=== PATIENT | female | born 1930 | race African-American/Black ===

== ENCOUNTER 2018-03-04 06:23 | Day surgery (SDC) | payer MEDICARE, MEDICAID ==
--- NOTE | 2018-03-02 16:13 | Pre-Procedure Note/Attestation ---
Pre-Procedure Note/Attestation Complete Prior to Procedure Planned Procedure: right Procedure Narrative: phaco with IOL Indications for Procedure Pre-Operative Diagnosis: cataract Attestation I attest that I discussed the nature of the procedure; its benefits; risks and complications; and alternatives (and the risks and benefits of such alternatives ), prior to the procedure, with the patient (or the patient's legal traffic representative). I attest that, if there was a reasonable possibility of needing a blood transfusion, the patient (or the patient's legal traffic representative) was given the [facility] standardized written summary, pursuant to the [place] Blood Safety Act ([place] Health and Safety Code # 1645, as amended). I attest that I re-evaluated the patient just prior to the surgery and that there has been no change in the patient's H&P, except as documented below: TAYLOR MONZON Mar 02, 2018 16:13
--- NOTE | 2018-03-02 16:15 | Opthalmology H&P ---
Ophthalmology H&P H&P Chief Complaint: decreased vision in right eye HPI Vision Affects Ability to: read, focus/use eyes together, manage personal affairs HPI Narrative blurry vision Exam Visual Acuity: OD: CF OS: 20/80 Tension: OD: 16 OS: 16 Eye Exam: normal OU: external exam, palpebral fissure-width, marginal reflex distance, levator function, corneas, anterior chambers; findings: lens - OD: ns OS: ns, fundus exam - poor view OU Assessment/Plan Diagnosis: (1) Mature cataract Treatment Plan: cataract extraction w/ lens implant Goals of Treatment: improvement of vision, enhance quality of life Attestation Attestation The risks and benefits of the surgery as well as alternative procedures were explained to the patient in detail. TAYLOR MONZON Mar 02, 2018 16:15
[~2018-03-04] VITALS: Ht 165.1 cm; Wt 88.9 kg
[~2018-03-04 06:23] MED LIST: AMIODARONE HCL200 MG ORAL; CELEBREX100 MG ORAL; METHOCARBAMOL500 MG ORAL; OMEPRAZOLE20 M2 ORAL; SYNTHROID100 MCG ORAL; XARELTO10 MG ORAL; vit D PO
[2018-03-04] MEDS ORDERED: Proparacaine 0.5% Opth Soln 15ml RIGHT EYE ONE (07:00)
[2018-03-04] MEDS ORDERED: Pred Forte 1% Opth Susp 1ml ONE ×2 (07:00→08:00)
[2018-03-04] MEDS ORDERED: Dexamethasone 4mg/ml vial ONE ×2 (07:00→08:00)
[2018-03-04] MEDS ORDERED: Akten 3.5% 1ml Btl RIGHT EYE ONE (07:00)
[2018-03-04] MEDS ORDERED: Diclofenac Sod 0.1% Op Soln RIGHT EYE SCH (07:00)
[2018-03-04] MEDS ORDERED: Tetracaine 0.5% Opth 4ml Soln RIGHT EYE ONE (07:00)
[2018-03-04] MEDS ORDERED: Maxitrol Opth Oint 3.5gm ONE ×2 (07:00→08:00)
[2018-03-04] MEDS ORDERED: Pilocarpine 2% Opth 15ml Soln ONE ×2 (07:00→08:00)
[2018-03-04] MEDS ORDERED: EPINEPHrine 1mg/1ml Amp ONE ×2 (07:08→10:29)
[2018-03-04] MEDS ORDERED: Lidocaine 2% MPF 5ml Vial INJ ONE (07:08)
[2018-03-04] MEDS ORDERED: BSS 500ml btl ONE ×2 (07:09→10:30)
[2018-03-04] MEDS ORDERED: Carbachol 0.01% Op Soln 1.5ml vial ONE (07:09)
[2018-03-04] MEDS ORDERED: BSS 15ml BTL ONE ×2 (07:09→10:30)
[2018-03-04] MEDS ORDERED: Sodium Hyaluronate 14 mg/ml 0.85ml ONE ×2 (07:09→10:30)
[2018-03-04] MEDS ORDERED: Povidone-Iodine 5% opth solution ONE ×2 (07:09→10:30)
[2018-03-04] MEDS ORDERED: Akten 3.5% 1ml Btl ONE (07:09)
[2018-03-04] MEDS: Cyclopentolate 1% Opth Sol 2ml RIGHT EYE SCH ×3 (08:09→08:48)
[2018-03-04] MEDS: Tropicamide 1% Opth 15ml Soln RIGHT EYE SCH ×3 (08:10→08:48)
[2018-03-04] MEDS: Tobramycin Op Soln 0.3% 5ml RIGHT EYE SCH ×3 (08:11→08:48)
[2018-03-04] MEDS: Phenylephrine 10% Opth Soln 5ml RIGHT EYE SCH ×3 (08:11→08:48)
[2018-03-04] MEDS ORDERED: VITAMIN B122500 MCG PO (08:47)
[2018-03-04] MEDS ORDERED: LIPITOR80 MG ORAL (08:47)
[2018-03-04] MEDS ORDERED: VITAMIN D22000 UNIT PO (08:47)
[2018-03-04] MEDS ORDERED: MECLIZINE HCL12.5 MG ORAL (08:47)
[2018-03-04] MEDS ORDERED: NS Irrig 1000ml ONE (10:00)
[2018-03-04] MEDS ORDERED: Midazolam 2mg/2ml Inj ONE (10:00)
[2018-03-04] MEDS ORDERED: NS Irrig 4000ml IRRIG ONE (10:00)
[2018-03-04] MEDS ORDERED: LR 1000ml ONE (10:00)
[2018-03-04] MEDS ORDERED: Propofol 200mg/20ml IV ONE (10:00)
[2018-03-04] MEDS ORDERED: fentaNYL 100 mcg/2 mL IV ONE (10:17)
[2018-03-04] MEDS ORDERED: LR 1000ml 1,000 ML IVLG SCH (10:49)
--- NOTE | 2018-03-04 10:49 | Anethesia Preoperative Eval ---
Anesthesia Pre-op PMH/ROS General Date of Evaluation: Mar 04, 2018 Time of Evaluation: 10:15 Anesthesiologist: Perla ASA Score: ASA 3 Mallampati Score Class I : Soft palate, uvula, fauces, pillars visible Class II: Soft palate, uvula, fauces visible Class III: Soft palate, base of uvula visible Class IV: Only hard plate visible Mallampati Classification: Class III Surgeon: Kim Diagnosis: R eyed cataract Surgical Procedure: R eye cataract extraction Anesthesia History: none Family History: no anesthesia problems Allergies: Coded Allergies: No Known Allergies (Unverified , 03/02/18) Medications: see eMAR Past Medical History Cardiovascular: Reports: HTN, arrhythmia; Denies: CAD, [place], valve dz, other Pulmonary: Denies: asthma, COPD, [place], other Gastrointestinal/Genitourinary: Reports: GERD, CRI; Denies: ESRD, other Neurologic/Psychiatric: Denies: dementia, CVA, depression/anxiety, TIA, other Endocrine: Reports: hypothyroidism; Denies: DM, steroids, other HEENT: Reports: cataract (L), cataract (R); Denies: glaucoma, [place] (L), [place] (R), other Hematology/Immune: Reports: anemia - mild; Denies: DVT, bleeding disorder, other Musculoskeletal/Integumentary: Reports: DJD; Denies: OA, RA, DDD, edema, other Other: other - overweight PMH Narrative: as above PSxH Narrative: See chart Anesthesia Pre-op Phys. Exam Physician Exam Last Vital Signs Date Time Temp Pulse Resp B/P (MAP) Pulse Ox O2 Delivery O2 Flow Rate FiO2 03/04/18 08:27 Room Air 03/04/18 08:02 97.6 80 20 98 97.6 Constitutional: NAD Neurologic: CN 2-12 intact Cardiovascular: RRR, no M/R/G Respiratory: CTA Gastrointestinal: S/NT/ND Airway Exam Mallampati Score: Class II MO: limited Neck: stiff ROM: limited Teeth: missing Dentures: upper, lower Anesthesia Pre-op A/P Labs see chart Studies Pre-op Studies: EKG Risk Assessment & Plan Assessment: ASA 3 Plan: MAC Status Change Before Surgery: No Pre-Antibiotics Drug: none Franklin Duncan MD Mar 04, 2018 10:49
[2018-03-04 11:00] VITALS: BP 168/75
[2018-03-04] MEDS ORDERED: fentaNYL 100 mcg/2 mL IV PRN (11:00)
[2018-03-04] MEDS ORDERED: DiphenhydrAMINE 50mg/ml Inj IVP PRN (11:00)
[2018-03-04 11:05] VITALS: BP 166/88
[2018-03-04 11:10] VITALS: BP 128/82
[2018-03-04 11:20] VITALS: BP 134/74
[2018-03-04 11:30] VITALS: BP 135/75
--- NOTE | 2018-03-04 11:37 | Immediate Post-Op Evaluation ---
Immediate Post-Op Evalulation Immediate Post-Op Evalulation Procedure: R eye cataract extraction with IOL Date of Evaluation: Mar 04, 2018 Time of Evaluation: 11:04 IV Fluids: 300 Blood Products: none Estimated Blood Loss: none Urinary Output: none Blood Pressure Systolic: 148 Blood Pressure Diastolic: 72 Pulse Rate: 68 Respiratory Rate: 20 O2 Sat by Pulse Oximetry: 99 Temperature (Fahrenheit): 97.5 Pain Score (1-10): 1 Nausea: No Vomiting: No Complications none Patient Status: awake, patent, none Hydration Status: adequate Franklin Duncan MD Mar 04, 2018 11:37
[2018-03-04 15:00] VITALS: BP 144/76
--- NOTE | 2018-03-04 15:00 | 48 Hour Post Anesthesia Eval ---
Post Anesthesia Evaluation Procedure: R eye cataract extraction with IOL Date of Evaluation: Mar 04, 2018 Time of Evaluation: 11:28 Blood Pressure Systolic: 144 0: 76 Pulse Rate: 68 Respiratory Rate: 20 Temperature (Fahrenheit): 97.6 O2 Sat by Pulse Oximetry: 98 Airway: patent Nausea: No Vomiting: No Pain Intensity: 2 Hydration Status: adequate Cardiopulmonary Status: stable Mental Status/LOC: patient returned to baseline Follow-up Care/Observations: n/a Post-Anesthesia Complications: none Follow-up care needed: ready to discharge Franklin Duncan MD Mar 04, 2018 15:00
--- NOTE | 2018-03-07 19:33 | Brief Operative Note ---
Immediate Post Operative Note Operative Note Chief Complaint: blurry vision Pre-op Diagnosis: cataract, OD Procedure: phaco with IOL Post-op Diagnosis: Pseudophakia Post-op Diagnosis: same as pre-op Findings: consistent w/pre-op dx studies Surgeon: iKm Anesthesiologist: Perla Anesthesia: MAC Specimen: none Complications: none Condition: stable Fluids: LR Estimated Blood Loss: none Drains: none Implant(s) used?: Yes TAYLOR MONZON Mar 07, 2018 19:33
--- NOTE | 2018-03-07 19:36 | Operative Note - PDOC ---
Operative Note Operative Note Date of Operation/Procedure: Mar 04, 2018 Chief Complaint: blurry vision Pre-op Diagnosis: cataract, OD Procedure: phaco with IOL Post-op Diagnosis: Pseudophakia Post-op Diagnosis: same as pre-op Operative Findings: consistent w/pre-op dx studies Surgeon: Kim Anesthesiologist: Perla Anesthesia: MAC Specimen: none Complications: none Condition: stable Fluids: LR Estimated Blood Loss: none Drains: none Implant(s) used?: Yes Indications for Procedure cataract Description of Procedure This patient has been complaining visually significant cataract in the affected eye with the best corrected visual acuity under moderate glare conditions worse. The patient complains of difficulties with glare in performing activities of daily living and wants to manage personal affairs with comfort and accuracy and see well enough to move with safety at home and outdoors. ~~~ The risks, benefits and alternatives of the procedure were discussed with the patient in the office prior to scheduling surgery. All questions from the patient were answered after the surgical procedure was explained in detail. The risks of the procedure as explained to the patient include, but are not limited to, pain, infection, bleeding, loss of vision, retinal detachment, need for further surgery, loss of lens nucleus, double vision, etc. Alternative procedures were discussed which include, to do nothing or seek a second opinion. Informed consent for this procedure was obtained from the patient. The patient was referred to a primary care physician for a cardiopulmonary clearance prior to surgery, after proper evaluation was done patient was properly scheduled for outpatient surgery. The patient was brought to the operating room where the anesthesiologist established I.V. lines and cardiac monitoring leads. Mild intravenous sedation was administered. The patient was then prepared with a 5% solution of povidone- iodine to the conjunctival fornix and lashes, and a 5% solution of povidone- iodine to the lids and periorbital skin. The patient was then draped in the usual sterile fashion. A lid speculum was then placed in the operative eye. A keratome blade was then used to create a biplanar incision into the anterior chamber. Viscoelastics was then instilled into the anterior chamber. A capsulorrhexis was then fashioned with an utrata forceps. BSS and a G 27 cannula were then used to hydrodissect and hydro delineate the lens nucleus. Paracentesis incision was made at 3 o'clock with sharp blade. The phacoemulsification unit, after being properly adjusted ~and tested, was then used to emulsify the nucleus. Residual cortical material was aspirated with the irrigation and aspiration unit. Healon was then instilled into the anterior chamber. The corneal wound was then enlarged to the size of the optic with the elsie keratome blade. The intraocular lens was then inspected for right ~ power and size and thought to be satisfactory. Then the lens was gently placed in the capsular bag. Positioning within the capsular bag was confirmed by direct visualization. Optic centration was accomplished with a Sinskey hook. Viscoelastics ~was removed from the anterior chamber using the irrigation and aspiration unit. The corneal wound was then tested for leaks and none were found. The lid speculum were then removed. Sponge and needle counts were correct. An eye patch and shield were placed over the operative eye. The patient was taken to the recovery room in stable condition. There were no complications. The patient tolerated the procedure well. The patient was then transferred to the ambulatory surgery unit in stable and satisfactory condition , was given detailed written instructions and asked to follow up ~in the office the next day. TAYLOR MONZON Mar 07, 2018 19:36
== END 2018-03-04 12:10 | disposition home or self-care (01) ==
LOC: SUR 06:23
DX: H25.89 Other age-related cataract (principal); I48.91 Unspecified atrial fibrillation; E11.40 Type 2 diabetes mellitus with diabetic neuropathy, unspecified; I10 Essential (primary) hypertension; E03.9 Hypothyroidism, unspecified; M19.90 Unspecified osteoarthritis, unspecified site; E88.81 Metabolic syndrome and other insulin resistance; E20.9 Hypoparathyroidism, unspecified; E78.9 Disorder of lipoprotein metabolism, unspecified; M81.0 Age-related osteoporosis without current pathological fracture; E66.3 Overweight; D64.9 Anemia, unspecified; Z90.710 Acquired absence of both cervix and uterus; Z90.49 Acquired absence of other specified parts of digestive tract; Z88.5 Allergy status to narcotic agent
CPT/HCPCS: 66984; J0171; J1100; J2250; J2704; J3010; J3370; V2632; 94003; 94150

== ENCOUNTER 2018-05-16 05:59 | Day surgery (SDC) | payer MEDICARE, MEDICAID ==
--- NOTE | 2018-05-14 11:26 | Pre-Procedure Note/Attestation ---
Pre-Procedure Note/Attestation Complete Prior to Procedure Planned Procedure: left Procedure Narrative: PHACO WITH IOL Indications for Procedure Pre-Operative Diagnosis: CATARACT Attestation I attest that I discussed the nature of the procedure; its benefits; risks and complications; and alternatives (and the risks and benefits of such alternatives ), prior to the procedure, with the patient (or the patient's legal claim representative). I attest that, if there was a reasonable possibility of needing a blood transfusion, the patient (or the patient's legal claim representative) was given the [facility] standardized written summary, pursuant to the [place] Blood Safety Act ([place] Health and Safety Code # 1645, as amended). I attest that I re-evaluated the patient just prior to the surgery and that there has been no change in the patient's H&P, except as documented below: Yaw Alvarez MD May 14, 2018 11:26
--- NOTE | 2018-05-14 11:27 | Opthalmology H&P ---
Ophthalmology H&P H&P Chief Complaint: decreased vision in left eye HPI Vision Affects Ability to: read, focus/use eyes together, manage personal affairs HPI Narrative BLURRY VISION Exam Visual Acuity: OD; 20/25 OS;20/60 Tension: OD; 16 OS;18 Eye Exam: normal OU: external exam, palpebral fissure-width, marginal reflex distance, levator function, corneas, anterior chambers, fundus exam; findings: lens - OD;IOL OS; NS Assessment/Plan Diagnosis: (1) Nuclear sclerotic cataract of left eye Treatment Plan: cataract extraction w/ lens implant Goals of Treatment: improvement of vision, enhance quality of life Attestation Attestation The risks and benefits of the surgery as well as alternative procedures were explained to the patient in detail. Yaw Alvarez MD May 14, 2018 11:27
[~2018-05-16] VITALS: Ht 165.1 cm; Wt 93.4 kg
[2018-05-16] VITALS (9 sets, daily range): BP systolic 165–175; BP diastolic 86–97
[~2018-05-16 05:59] MED LIST changes: +LIPITOR80 MG ORAL; +MECLIZINE HCL12.5 MG ORAL; +VITAMIN B122500 MCG PO; +VITAMIN D22000 UNIT PO
[2018-05-16] MEDS ORDERED: Proparacaine 0.5% Opth Soln 15ml LEFT EYE ONE (07:00)
[2018-05-16] MEDS ORDERED: Akten 3.5% 1ml Btl LEFT EYE ONE (07:00)
[2018-05-16] MEDS ORDERED: Tetracaine 0.5% Opth 4ml Soln LEFT EYE ONE (07:00)
[2018-05-16 08:51] LABS: HEMATOCRIT 40.1 % (37.0-47.0); HEMOGLOBIN 12.6 G/DL (12.0-16.0); MEAN CORPUSCULAR VOLUME 85 FL (80-99); PLATELET COUNT 243 K/UL (150-450); RED BLOOD COUNT 4.74 M/UL (4.20-5.40); RED CELL DISTRIBUTION WIDTH 17.3 % (11.6-14.8); WHITE BLOOD COUNT 3.3 K/UL (4.8-10.8)
[2018-05-16 08:55] LABS: ANION GAP 7 mmol/L (5-15); BLOOD UREA NITROGEN 20 mg/dL (7-18); CALCIUM 8.7 MG/DL (8.5-10.1); CARBON DIOXIDE 25 MMOL/L (21-32); CHLORIDE 106 MMOL/L (98-107); CREATININE 1.5 MG/DL (0.55-1.30); POTASSIUM 5.6 MMOL/L (3.5-5.1); SODIUM 138 MMOL/L (136-145)
[2018-05-16] MEDS: Cyclopentolate 1% Opth Sol 2ml LEFT EYE SCH ×3 (09:05→09:21)
[2018-05-16] MEDS: Diclofenac Sod 0.1% Op Soln LEFT EYE SCH ×2 (09:05→09:19)
[2018-05-16] MEDS: Tropicamide 1% Opth 15ml Soln LEFT EYE SCH ×3 (09:05→09:21)
[2018-05-16] MEDS ORDERED: Phenylephrine 10% Opth Soln 5ml ONE (09:07)
[2018-05-16] MEDS: Phenylephrine 10% Opth Soln 5ml LEFT EYE SCH ×3 (09:09→09:22)
[2018-05-16] MEDS: Tobramycin Op Soln 0.3% 5ml LEFT EYE SCH ×2 (09:20→09:21)
[2018-05-16] MEDS ORDERED: fentaNYL 100 mcg/2 mL IV ONE (09:30)
[2018-05-16] MEDS ORDERED: Dexamethasone 4mg/ml vial ONE (09:30)
[2018-05-16] MEDS ORDERED: Maxitrol Opth Oint 3.5gm ONE (09:30)
[2018-05-16] MEDS ORDERED: LR 1000ml ONE (09:30)
[2018-05-16] MEDS ORDERED: Pilocarpine 2% Opth 15ml Soln ONE (09:30)
[2018-05-16] MEDS ORDERED: Pred Forte 1% Opth Susp 1ml ONE (09:30)
[2018-05-16] MEDS ORDERED: Propofol 200mg/20ml IV ONE (09:30)
--- NOTE | 2018-05-16 09:48 | Anethesia Preoperative Eval ---
Anesthesia Pre-op PMH/ROS General Date of Evaluation: May 16, 2018 Time of Evaluation: 09:20 Anesthesiologist: Perla ASA Score: ASA 3 Mallampati Score Class I : Soft palate, uvula, fauces, pillars visible Class II: Soft palate, uvula, fauces visible Class III: Soft palate, base of uvula visible Class IV: Only hard plate visible Mallampati Classification: Class III Surgeon: Kim Diagnosis: L eye cataract Surgical Procedure: L eye cataract extraction Anesthesia History: none Family History: no anesthesia problems Allergies: Coded Allergies: No Known Allergies (Unverified , 03/02/18) Medications: see eMAR Patient NPO?: Yes Past Medical History Cardiovascular: Reports: HTN, arrhythmia - A fib; Denies: CAD, [place], valve dz, other Pulmonary: Denies: asthma, COPD, [place], other Gastrointestinal/Genitourinary: Reports: GERD; Denies: CRI, ESRD, other Neurologic/Psychiatric: Reports: depression/anxiety; Denies: dementia, CVA, TIA, other Endocrine: Reports: DM; Denies: hypothyroidism, steroids, other HEENT: Reports: cataract (L), cataract (R); Denies: glaucoma, [place] (L), [place] (R), other Hematology/Immune: Reports: anemia - mild; Denies: DVT, bleeding disorder, other Musculoskeletal/Integumentary: Reports: DJD; Denies: OA, RA, DDD, edema, other Other: other - overweight PMH Narrative: as above PSxH Narrative: see H&P Anesthesia Pre-op Phys. Exam Physician Exam Last Vital Signs Date Time Temp Pulse Resp B/P (MAP) Pulse Ox O2 Delivery O2 Flow Rate FiO2 05/16/18 09:13 97.3 65 20 175/93 99 Room Air Constitutional: NAD Neurologic: CN 2-12 intact Cardiovascular: other - IIR Respiratory: CTA Gastrointestinal: S/NT/ND Airway Exam Mallampati Score: Class III MO: limited Neck: stiff ROM: limited Teeth: missing Dentures: no upper, no lower Anesthesia Pre-op A/P Labs Hematology Test 05/16/18 08:30 White Blood Count 3.3 K/UL (4.8-10.8) L Red Blood Count 4.74 M/UL (4.20-5.40) Hemoglobin 12.6 G/DL (12.0-16.0) Hematocrit 40.1 % (37.0-47.0) Mean Corpuscular Volume 85 FL (80-99) Mean Corpuscular Hemoglobin 26.5 PG (27.0-31.0) L Mean Corpuscular Hemoglobin Concent 31.3 G/DL (32.0-36.0) L Red Cell Distribution Width 17.3 % (11.6-14.8) H Platelet Count 243 K/UL (150-450) Mean Platelet Volume 12.2 FL (6.5-10.1) H Neutrophils (%) (Auto) % (45.0-75.0) Lymphocytes (%) (Auto) % (20.0-45.0) Monocytes (%) (Auto) % (1.0-10.0) Eosinophils (%) (Auto) % (0.0-3.0) Basophils (%) (Auto) % (0.0-2.0) Differential Total Cells Counted 100 Neutrophils % (Manual) 74 % (45-75) Lymphocytes % (Manual) 13 % (20-45) L Monocytes % (Manual) 10 % (1-10) Eosinophils % (Manual) 2 % (0-3) Basophils % (Manual) 1 % (0-2) Band Neutrophils 0 % (0-8) Platelet Estimate Adequate Platelet Morphology Normal Anisocytosis 1+ Chemistry Test 05/16/18 08:30 Sodium Level 138 MMOL/L (136-145) Potassium Level 5.6 MMOL/L (3.5-5.1) H Chloride Level 106 MMOL/L (98-107) Carbon Dioxide Level 25 MMOL/L (21-32) Anion Gap 7 mmol/L (5-15) Blood Urea Nitrogen 20 mg/dL (7-18) H Creatinine 1.5 MG/DL (0.55-1.30) H Estimat Glomerular Filtration Rate mL/min (>60) Glucose Level 90 MG/DL (74-106) Calcium Level 8.7 MG/DL (8.5-10.1) Studies Pre-op Studies: EKG - AF Risk Assessment & Plan Assessment: ASA3 Plan: MAC Status Change Before Surgery: No Pre-Antibiotics Drug: none Franklin Duncan MD May 16, 2018 09:48
[2018-05-16] MEDS ORDERED: LR 1000ml 1,000 ML IVLG SCH (09:51)
[2018-05-16] MEDS ORDERED: EPINEPHrine 1mg/1ml Amp ONE (09:52)
[2018-05-16] MEDS ORDERED: BSS 500ml btl ONE (09:53)
[2018-05-16] MEDS ORDERED: Povidone-Iodine 5% opth solution ONE (09:53)
[2018-05-16] MEDS ORDERED: Sodium Hyaluronate 14 mg/ml 0.85ml ONE (09:53)
[2018-05-16] MEDS ORDERED: BSS 15ml BTL ONE (09:53)
[2018-05-16] MEDS ORDERED: fentaNYL 100 mcg/2 mL IV PRN (10:00)
--- NOTE | 2018-05-16 10:54 | Immediate Post-Op Evaluation ---
Immediate Post-Op Evalulation Immediate Post-Op Evalulation Procedure: L eyre cataract extraction with IOL Date of Evaluation: May 16, 2018 Time of Evaluation: 10:16 IV Fluids: 300 Blood Products: none Estimated Blood Loss: none Urinary Output: none Blood Pressure Systolic: 176 Blood Pressure Diastolic: 89 Pulse Rate: 68 Respiratory Rate: 20 O2 Sat by Pulse Oximetry: 98 Temperature (Fahrenheit): 97.6 Pain Score (1-10): 1 Nausea: No Vomiting: No Complications none Patient Status: awake, patent, none Hydration Status: adequate Franklin Duncan MD May 16, 2018 10:54
--- NOTE | 2018-05-16 11:06 | 48 Hour Post Anesthesia Eval ---
Post Anesthesia Evaluation Procedure: L eye cataract extraction with IOL Date of Evaluation: May 16, 2018 Time of Evaluation: 11:05 Blood Pressure Systolic: 168 0: 86 Pulse Rate: 64 Respiratory Rate: 20 Temperature (Fahrenheit): 97.6 O2 Sat by Pulse Oximetry: 98 Airway: patent Nausea: No Vomiting: No Pain Intensity: 1 Hydration Status: adequate Cardiopulmonary Status: stable Mental Status/LOC: patient returned to baseline Follow-up Care/Observations: n/a Post-Anesthesia Complications: none Follow-up care needed: ready to discharge Franklin Duncan MD May 16, 2018 11:06
--- NOTE | 2018-05-16 19:00 | Pre-op HX & Phy Repo 2 SIG ---
DATE OF ADMISSION: 05/16/2018 PRESURGICAL INTERNAL MEDICINE HISTORY AND PHYSICAL REASON FOR EVALUATION: I was asked by Dr. Yaw Alvarez to see this 87-year-old female who going for elective surgery on the left eye. The patient has a cataract, left eye. Please see Ophthalmology History and Physical by Dr. Yaw Alvarez. The patient was evaluated. Chart was reviewed. PAST MEDICAL HISTORY/REVIEW OF SYSTEMS: Remarkable for history of hypertension, hypothyroidism. No diabetes. No CVA. No heart attack. The patient with GERD. No respiratory problem, asthma, or bronchitis. No renal failure. The patient has degenerative joint disease of the knee and varicose vein lower extremities. No anemia. PAST SURGICAL HISTORY: 1. Cholecystectomy. 2. Right forearm lipoma excision. FAMILY HISTORY: Both parents from complication of cancer. ALLERGIES: Not known. PRESENT MEDICATIONS: Include amlodipine 5 mg, amiodarone 200 mg, Xarelto 15 mg, vitamin B12, omeprazole, methocarbamol, Celebrex, Synthroid 100 mcg daily, meclizine. HABITS: Smoker in the distant past. No alcohol. No street drugs. PHYSICAL EXAMINATION: GENERAL: Alert, well-developed, well-nourished female, in her 80s. VITAL SIGNS: First measurement 185/100 and third measurement 175/93. Temperature 97.3, pulse 67, O2 saturation 99%. SKIN: Dry. Warm. No rashes. No open wound. LYMPH NODES: Not enlarged. HEENT: Head normocephalic, atraumatic. Ears, clear. Eyes, full description per Dr. Yaw Alvarez. Mouth, clear and moist. No dentures. NECK: No jugular venous distention. Carotids artery +2. Trachea midline. CHEST: No deformity or asymmetry. LUNGS: Clear to auscultation and percussion. No rales or rhonchi. HEART: Sinus rhythm. No ectopy. No murmur. No S3 or S4. No ectopy. ABDOMEN: Soft. No palpable mass. No rebound. EXTREMITIES: Degenerative joint disease of the knee. No edema. Varicose vein in both calf. No calf tenderness. GENITOURINARY TRACT: No dysuria. No CVA tenderness. NERVOUS SYSTEM: No tremor. No nystagmus. LABORATORY AND DIAGNOSTIC DATA: ECG rate 73, right bundle-branch block, and left axis deviation. Laboratory pending. The patient did not eat or drink. IMPRESSION: 1. Cataract, left eye. 2. Hypertension. 3. Hypothyroidism. 4. Gastroesophageal reflux disease. 5. Degenerative joint disease of the knee. 6. Varicose vein lower extremities. 7. Left axis deviation and right bundle-branch block on EKG. PLAN: Cataract extraction, left eye with intraocular lens implant per Dr. Yaw Alvarez. CONCLUSION: The patient's hypertension is controlled. The patient's EKG showed right bundle-branch block and left axis deviation, undetermined rhythm. The patient did not eat or drink from last night. Lab work pending. The patient's condition optimized for surgery. Thank you very much, Dr. Alvarez, for privilege to participate presurgical care of this interesting patient has. Robi Navarrete M.D. DR: Lasha JOB#: [id number] CC:
--- NOTE | 2018-05-17 12:45 | Brief Operative Note ---
Immediate Post Operative Note Operative Note Chief Complaint: BLURRY VISION Pre-op Diagnosis: CATARACT,OS Procedure: PHACO WITH IOL, OS Post-op Diagnosis: PSEUDOPHAKIA Post-op Diagnosis: same as pre-op Findings: consistent w/pre-op dx studies Surgeon: NICOLÁS Anesthesiologist: NADJA Anesthesia: MAC Specimen: none Complications: none Fluids: LR Estimated Blood Loss: none Drains: none Implant(s) used?: Yes Yaw Alvarez MD May 17, 2018 12:45
--- NOTE | 2018-05-17 12:46 | Operative Note - PDOC ---
Operative Note Operative Note Date of Operation/Procedure: May 16, 2018 Chief Complaint: BLURRY VISION Pre-op Diagnosis: CATARACT,OS Procedure: PHACO WITH IOL, OS Post-op Diagnosis: PSEUDOPHAKIA Post-op Diagnosis: same as pre-op Operative Findings: consistent w/pre-op dx studies Surgeon: NICOLÁS Anesthesiologist: NADJA Anesthesia: MAC Specimen: none Complications: none Fluids: LR Estimated Blood Loss: none Drains: none Implant(s) used?: Yes Indications for Procedure CATARACT Description of Procedure This patient has been complaining visually significant cataract in the affected eye with the best corrected visual acuity under moderate glare conditions worse. The patient complains of difficulties with glare in performing activities of daily living and wants to manage personal affairs with comfort and accuracy and see well enough to move with safety at home and outdoors. The risks, benefits and alternatives of the procedure were discussed with the patient in the office prior to scheduling surgery. All questions from the patient were answered after the surgical procedure was explained in detail. The risks of the procedure as explained to the patient include, but are not limited to, pain, infection, bleeding, loss of vision, retinal detachment, need for further surgery, loss of lens nucleus, double vision, etc. Alternative procedures were discussed which include, to do nothing or seek a second opinion. Informed consent for this procedure was obtained from the patient. The patient was referred to a primary care physician for a cardiopulmonary clearance prior to surgery, after proper evaluation was done patient was properly scheduled for outpatient surgery. The patient was brought to the operating room where the anesthesiologist established I.V. lines and cardiac monitoring leads. Mild intravenous sedation was administered. The patient was then prepared with a 5% solution of povidone -iodine to the conjunctival fornix and lashes, and a 5% solution of povidone- iodine to the lids and periorbital skin. The patient was then draped in the usual sterile fashion. A lid speculum was then placed in the operative eye. A keratome blade was then used to create a biplanar incision into the anterior chamber. Viscoelastics was then instilled into the anterior chamber. A capsulorrhexis was then fashioned with an utrata forceps. BSS and a cannula were then used to hydrodissect and hydro delineate the lens. Paracentesis incision was made at 3 o'clock with sharp blade. The phacoemulsification unit, after being properly adjusted and tested, was then used to emulsify the nucleus followed by the residual cortical material being aspirated with the irrigation and aspiration unit. Healon was then instilled into the anterior chamber. The corneal wound was then enlarged to the size of the optic with the elsie keratome blade. The intraocular lens was then inspected for right power and size and thought to be satisfactory. Then the lens was gently placed in the capsular bag. Positioning within the capsular bag was confirmed by direct visualization. Optic centration was accomplished with a Sinskey hook. Viscoelastics was removed from the anterior chamber using the irrigation and aspiration unit. The corneal wound was then tested for leaks and none were found. The lid speculum were then removed. Sponge and needle counts were correct. An eye patch and shield were placed over the operative eye. The patient was taken to the recovery room in stable condition. There were no complications. The patient tolerated the procedure well. The patient was then transferred to the ambulatory surgery unit in stable and satisfactory condition , was given detailed written instructions and asked to follow up in the office the next day. aYw Alvarez MD May 17, 2018 12:46
== END 2018-05-16 11:20 | disposition home or self-care (01) ==
LOC: SUR 05:59
DX: H25.12 Age-related nuclear cataract, left eye (principal); I10 Essential (primary) hypertension; E03.9 Hypothyroidism, unspecified; K21.9 Gastro-esophageal reflux disease without esophagitis; I48.91 Unspecified atrial fibrillation; I45.10 Unspecified right bundle-branch block; F32.9 Major depressive disorder, single episode, unspecified; F41.9 Anxiety disorder, unspecified; D64.9 Anemia, unspecified; M17.10 Unilateral primary osteoarthritis, unspecified knee; I83.90 Asymptomatic varicose veins of unspecified lower extremity; Z87.891 Personal history of nicotine dependence; Z90.49 Acquired absence of other specified parts of digestive tract
CPT/HCPCS: 36415; 66984; 80048; 85007; 85025; 93005; J0171; J1100; J2704; J3010; J3370; V2632; 94003; 94150